=== PATIENT | male | born 1995 | race Caucasian/White ===

== ENCOUNTER 2019-09-10 14:52 | Emergency (ER) | payer MEDICAID ==
[~2019-09-10 14:52] MED LIST: PENI500T PO
== END 2019-09-10 14:59 ==
LOC: ED 14:53
DX: R05 Cough (principal); Z53.21 Procedure and treatment not carried out due to patient leaving prior to being seen by health care provider

== ENCOUNTER 2019-12-14 10:08 | Emergency (ER) | payer MEDICAID ==
[~2019-12-14] VITALS: Ht 188 cm; Wt 78.4 kg
[2019-12-14 10:12] VITALS: BP 138/92
== END 2019-12-14 11:26 | disposition home or self-care (01) ==
LOC: ED 10:25
DX: S20.212A Contusion of left front wall of thorax, initial encounter (principal); Y04.8XXA Assault by other bodily force, initial encounter; Y93.89 Activity, other specified; Y92.89 Other specified places as the place of occurrence of the external cause; Y99.8 Other external cause status
CPT/HCPCS: 99283